=== PATIENT | female | born 1950 | race Caucasian/White ===

== ENCOUNTER → 2017-04-21 | Outpatient (CLI) | payer OTHER, MEDICARE ==
[~2017-04-21] MED LIST: LEVOXYL; PREMARIN; TYLENOL325 MG PO
== END ==
LOC: RAD 02:47
DX: Z12.31 Encounter for screening mammogram for malignant neoplasm of breast (principal)

== ENCOUNTER → 2018-04-28 | Outpatient (CLI) | payer OTHER, MEDICARE | LOC: RAD 01:25 | DX: Z12.31 Encounter for screening mammogram for malignant neoplasm of breast (principal) ==

== ENCOUNTER → 2020-02-27 | Outpatient (CLI) | payer OTHER, MEDICARE | LOC: CAT 14:27 | DX: I67.82 Cerebral ischemia (principal); H81.10 Benign paroxysmal vertigo, unspecified ear; R90.82 White matter disease, unspecified; G31.9 Degenerative disease of nervous system, unspecified ==